=== PATIENT | female | born 1965 | race Caucasian/White ===

== ENCOUNTER 2017-10-09 05:05 | Inpatient (IN) | payer OTHER ==
[~2017-10-09] VITALS: Ht 157.5 cm; Wt 140.2 kg
--- NOTE | ~2017-10-09 | HC ---
[facility] [place] [address] CONSULTATION Name: KEVIN FARRIS Room #: 201-P [facility] IN M.R.#: [id number] Admission: 10/09/17 Attend Phys: Amadeo Mathews MD Discharge: 10/23/17 Date of : 61 Report #: [id number] THIS REPORT FOR: //name// CC: FAM unknown Amadeo Mathews DATE OF SERVICE: 10/20/2017 ADDENDUM. DATE OF CONSULTATION: 10/20/2017. <ELECTRONICALLY SIGNED> By: Tl Muñoz MD 02/25/18 2033 1122 1215 Tl Muñoz MD /nt
--- NOTE | ~2017-10-09 | HC ---
[facility] [place] [address] CONSULTATION Name: KEVIN FARRIS Room #: 201-P [facility] IN ..#: [id number] Admission: 10/09/17 Attend Phys: Amadeo Mathews MD Discharge: 10/23/17 Date of : 61 Report #: [id number] THIS REPORT FOR: //name// CC: FAM unknown Amadeo Mathews REASON FOR CONSULTATION: I was asked to evaluate concerning a leukocytosis in the setting of left chest pneumothorax, COPD. HISTORY OF PRESENT ILLNESS: The patient was a 52-year-old with end-stage COPD, oxygen and steroid dependent, who presents with a 2-day history of dyspnea. Diagnosed with pneumothorax at outside hospital where a left chest tube was placed. Transfers to [facility] for further care. She was found to have a large left pneumothorax with a pigtail catheter in place. Developed an air leak and subcutaneous emphysema. Was seen by Pulmonary Medicine and Cardiothoracic Surgery. She has had minimal cough. She remains on 50% face mask. Some anterior chest discomfort mostly on the right. She has noticed this since her chest tube has been in place. Plan was to exchange her chest tube today for larger bore tube. Last evening developed epistaxis. Now has a nasal packing in place. No nausea, vomiting or diarrhea. No dysuria. Does have issue with chronic rectal incontinence. ALLERGIES: None known. MEDICATIONS: As noted on her MAR including Levaquin. Did receive 2 days of cefazolin. She remains on Solu-Medrol. Other medicines as noted on her OCT. PAST MEDICAL HISTORY: Diabetes, coronary artery disease, hypertension, end-stage COPD, iron deficiency anemia, anxiety, depression, atrial fibrillation, gastroesophageal reflux, osteoarthritis, renal calculi, morbid obesity, congestive heart failure, pulmonary nodules, incisional ventral hernia repair, hysterectomy, right knee surgery, right foot fracture. FAMILY HISTORY: Hypertension. SOCIAL HISTORY: No significant alcohol intake. Past smoker, currently lives in a skilled nursing. Had previously been on hospice care. REVIEW OF SYSTEMS: Denies any headache. Remains on face mask 50%. No neck pain. No new cardiac issues. No GI or complaints. PHYSICAL EXAMINATION: VITAL SIGNS: Afebrile and hemodynamically stable. GENERAL: She was obese. No acute distress. Became short of breath when trying to lay flat. Unable to roll over in bed. SKIN: Unremarkable. LYMPH: Unremarkable. [address] [address] CONSULTATION Name: KEVIN FARRIS Room #: 201-P [facility] IN [facility].#: [id number] Admission: 10/09/17 Attend Phys: Amadeo Mathews MD Discharge: 10/23/17 Date of : 61 Report #: [id number] HEENT: Unremarkable. NECK: Supple. LUNGS: Decreased breath sounds bilaterally. She did have subcutaneous air across her anterior chest. Had crepitance due to this. HEART: Regular, without murmur. ABDOMEN: Soft, nontender, no hepatosplenomegaly or mass. EXTERNAL GENITALIA: Unremarkable with indwelling Pleitez catheter. EXTREMITIES: Peripheral IV in place. Right foot fracture in a boot. SKIN: Inspected with evidence of ecchymosis to her right foot. No skin breakdown. LABORATORY STUDIES: Sodium 141, potassium 4.1, bicarbonate 33, creatinine 0.8, hemoglobin 10.4, platelet count 465,000, WBC 22.9. Urinalysis greater than 20 rbc's, moderate bacteria, no leukocytosis. Urine culture shows 70,000 Proteus species resistant to quinolones, Unasyn, nitrofurantoin, and tetracycline. Chest x-ray, left lower lobe atelectasis, left apical pneumothorax, chest tube in place. Subcutaneous air evident. IMPRESSION: Acute leukocytosis in the setting of epistaxis, left chest pneumothorax and basilar atelectasis, hematuria and bacteriuria in the setting of indwelling Pleitez catheter. Source of her leukocytosis I suspect is multifactorial including her epistaxis event, basilar pneumonitis and corticosteroid use. I doubt cystitis would cause that level of leukocytosis. Corticosteroids are most likely the driving factor. RECOMMENDATIONS: We will continue antibiotic coverage for her sinuses as well as the left chest. Would recommend tapering of her corticosteroids. The patient is to have her chest tube exchanged today. Doubt the leukocytosis is from this specific site. Would recommend following her white count as her steroids are tapered. Continue with Levaquin at this time pending further cultures. ADDENDUM. DATE OF CONSULTATION: 10/20/2017. <ELECTRONICALLY SIGNED> By: Tl Muñoz MD 03/16/18 1446 1200 1416 Tl Muñoz MD /nt
--- NOTE | ~2017-10-09 | O ---
[facility] [place] [address] OPERATIVE REPORT Name: BRENTONKEVIN S Room #: 201-P [facility] IN .R.#: [id number] Admission: 10/09/17 Attend Phys: Amadeo Mathews MD Discharge: 10/23/17 Date of : 61 Report #: [id number] THIS REPORT FOR: //name// CC: FAM unknown Amadeo Mathews MD PREOPERATIVE DIAGNOSES: 1. Anterior epistaxis. 2. Anticoagulated. 3. Anterior nasal septal perforation. DESCRIPTION OF PROCEDURE: The nose was sprayed with Afrin spray. I injected 7 mL of 1% lidocaine with 1:100,000 of epinephrine into the anterior nasal space as well as the septum. I then removed a crust from the septum. There was a 1.5 cm septal perforation with bleeding and cauterization around the edges. I inserted Merocel anterior nasal packs with ventilation tubing. They were then instilled with saline. There were coated with antibiotic ointment. The patient tolerated the procedure. <ELECTRONICALLY SIGNED> By: Kaden Tapia MD 11/17/17 1902 1255 1416 Kaden Tapia MD /nt
--- NOTE | ~2017-10-09 | EKG ---
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: DAYAN : 1965 Requested By: Boris Gibbons Order Number: [id number] MD: Gino Orr Measurements Intervals [place] Rate: 115 P: 74 ME: 143 QRS: 60 QRSD: 87 T: 62 QT: 332 QTc: 460 Interpretive Statements Sinus tachycardia Low voltage, precordial leads Compared to ECG 07/10/2013 10:13:49 Low QRS voltage now present Atrial premature complex(es) no longer present T-wave abnormality no longer present Electronically Signed On 10-09-2017 16:00:07 MECHANICAL APPLICATIONS ENGINEER by Gino Orr [email or web address] <ELECTRONICALLY SIGNED> By: Gino Orr MD, [facility] 10/09/17 1600 0939 0939 Gino Orr MD, [facility] /EPI
--- NOTE | ~2017-10-09 | EKG ---
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 : 1965 Requested By: Hemalatha Perez Order Number: [id number] MD: Gino Orr Measurements Intervals [place] Rate: 132 P: 63 UT: 136 QRS: 67 QRSD: 84 T: 42 QT: 300 QTc: 445 Interpretive Statements Sinus tachycardia Low voltage, precordial leads Compared to ECG 10/09/2017 09:39:24 No significant changes Electronically Signed On 10-10-2017 8:18:31 HIGH SCHOOL ART TEACHER by Gnio Orr [email or web address] <ELECTRONICALLY SIGNED> By: Gino Orr MD, [facility] 10/10/17817 2 2 Gino Orr MD, [facility] /EPI
[~2017-10-09 05:05] MED LIST: ACCUNEB SO1.25 MG/1; ACCUNEB SO1.25 MG/1 INH; ACCUNEB1.25 MG/3 INH; ACETAMINOPHEN325 M1 PO; ADVAIR 250-501 EACH INH; ADVAIR HFA115 MCG/21 INH; ALBUTEROL INH; ALBUTEROL2.5 MG/0.5 INH; ALBUTEROL2.5 MG/31 INH; ALPRAZOLAM PO; AMBIEN 10 MG TA10 MG PO; ASPIR 8181 MG PO; CALCITONIN NASAL; CARDIZEM CD120 MG PO; CELEXA 20 MG TA20 MG PO; COLACE 100 MG100 MG PO; COLACE100 MG PO; COMPAZINE25 M1 RECTAL; CYCLOBENZAPRINE5 MG PO; DUONEB 2.5-0.5 M3 ML INH; ENOXAPARIN40 MG/0.1 SUBQ; HALOPERIDOL 1 MG1 MG PO; IRON325 PO; K-DUR 20 MEQ T20 MEQ PO; LASIX 20 MG TAB20 MG PO; LASIX 40 MG TAB40 M2 PO; LASIX 80 MG TAB80 MG PO; LEVAQUIN 500 M500 M1 PO; LEVAQUIN 500 M500 M4 PO; LIDODERM 5%1 PATCH TOP; MOM PO; MS CONTIN 30 MG30 MG PO; MS CONTIN15 MG PO; MUCINEX TA600 MG/TA1 PO; MUCINEX600 MG PO; MYLANTA PO; NEURONTIN 300300 M1 PO; NORCO 10-325 T1 EACH PO; OSCAL PO; OXECTA5 MG PO; OXYCONTIN20 M1 PO; OXYCONTIN60 MG PO; POTASSIUM CHLO10 MEQ PO; POTASSIUM PO; PREDNISONE 10 M10 M1 PO; PREDNISONE 10 M10 MG PO; PRILOSEC 20 MG20 MG PO; PROTONIX40 M1 PO; PROTONIX40 M2 PO; RESTORIL15 MG PO; ROXANOL 20 M20 MG/ML PO; ROXICODONE5 MG PO; SPIRIVA INH; TRAMADOL 50 MG50 MG PO; TYLENOL325 MG PO; VAGISIL CREAM28 GM TOP; ZANTAC 150MG T150 M1 PO
[2017-10-09 06:34] VITALS: BP 134/79
[2017-10-09 07:34] VITALS: BP 130/79
[2017-10-09 10:21] LABS: HEMATOCRIT 37.4 % (37.0-47.0); HEMOGLOBIN 11.8 gm/dL (12.0-15.0); MCH 25.1 pg (26.0-34.0); MCHC 31.5 g/dL (28.0-37.0); MCV 79.6 fL (80.0-100.0); RBC 4.69 mil/uL (4.20-5.00); WBC 8.3 thou/uL (4.0-11.0)
[2017-10-09 10:34] LABS: CALCIUM 9.2 mg/dL (8.5-10.1); CREATININE 0.9 mg/dL (0.6-1.0)
[2017-10-09 10:44] LABS: TOTAL BILIRUBIN 0.3 mg/dL (<0.1-1.0); TOTAL PROTEIN 6.8 g/dL (6.4-8.2)
[2017-10-09 11:12] VITALS: BP 130/79
[2017-10-09 11:53] VITALS: BP 140/86
[2017-10-09 16:41] VITALS: BP 130/86
[2017-10-09 19:08] VITALS: BP 116/91
[2017-10-10] VITALS (8 sets, daily range): BP systolic 92–155; BP diastolic 68–112
[2017-10-10 04:07] LABS: HEMOGLOBIN 12.9 gm/dL (12.0-15.0); MCH 25.4 pg (26.0-34.0); MCHC 31.5 g/dL (28.0-37.0); MCV 80.6 fL (80.0-100.0); RBC 5.09 mil/uL (4.20-5.00); RDW 19.1 % (10.5-14.5); WBC 10.3 thou/uL (4.0-11.0)
[2017-10-10 04:16] LABS: CALCIUM 8.9 mg/dL (8.5-10.1); CREATININE 0.8 mg/dL (0.6-1.0); POTASSIUM 3.8 mmol/L (3.5-5.1)
[2017-10-10 18:11] LABS: BE(vivo) 2.2 mmol/L (-2 to +3); HCO3 30.6 mmol/L (22.0-26.0); PCO2 67.6 mmHg (35.0-45.0); PO2 70.1 mmHg (80.0-100.0); pH 7.274 (7.360-7.450); sO2 91.3 % (92.0-98.0)
[2017-10-10 20:17] LABS: BE(vivo) -1.7 mmol/L (-2 to +3); HCO3 25.6 mmol/L (22.0-26.0); PO2 58.8 mmHg (80.0-100.0); pH 7.286 (7.360-7.450); sO2 86.9 % (92.0-98.0)
[2017-10-11 04:50] VITALS: BP 117/64
[2017-10-11 04:50] LABS: HEMATOCRIT 37.1 % (37.0-47.0); HEMOGLOBIN 11.5 gm/dL (12.0-15.0); MCH 24.9 pg (26.0-34.0); MCHC 30.9 g/dL (28.0-37.0); MCV 80.5 fL (80.0-100.0); RBC 4.61 mil/uL (4.20-5.00); RDW 18.6 % (10.5-14.5)
[2017-10-11 05:02] LABS: CALCIUM 8.4 mg/dL (8.5-10.1); CREATININE 0.6 mg/dL (0.6-1.0); POTASSIUM 4.3 mmol/L (3.5-5.1)
[2017-10-11 07:51] VITALS: BP 108/51
[2017-10-11 09:33] VITALS: BP 108/51
[2017-10-11 11:56] VITALS: BP 121/74
[2017-10-11 15:54] VITALS: BP 107/70
[2017-10-11 20:10] VITALS: BP 139/78
[2017-10-12 00:38] VITALS: BP 151/77
[2017-10-12 03:44] LABS: HEMATOCRIT 34.1 % (37.0-47.0); HEMOGLOBIN 10.6 gm/dL (12.0-15.0); MCH 24.9 pg (26.0-34.0); MCV 80.3 fL (80.0-100.0); RBC 4.25 mil/uL (4.20-5.00); RDW 18.5 % (10.5-14.5); WBC 6.5 thou/uL (4.0-11.0)
[2017-10-12 04:02] LABS: CALCIUM 8.6 mg/dL (8.5-10.1); CREATININE 0.8 mg/dL (0.6-1.0); POTASSIUM 4.3 mmol/L (3.5-5.1)
[2017-10-12 04:45] VITALS: BP 137/82
[2017-10-12 05:26] LABS: BE(vivo) 3.9 mmol/L (-2 to +3); HCO3 30.2 mmol/L (22.0-26.0); PCO2 53.3 mmHg (35.0-45.0); PO2 92.8 mmHg (80.0-100.0); pH 7.371 (7.360-7.450); sO2 96.8 % (92.0-98.0)
[2017-10-12 07:10] VITALS: BP 140/87
[2017-10-12 10:55] VITALS: BP 135/92
[2017-10-12 15:10] VITALS: BP 136/93
[2017-10-12 19:24] VITALS: BP 105/61
[2017-10-13 03:06] LABS: HEMATOCRIT 35.5 % (37.0-47.0); MCH 24.5 pg (26.0-34.0); MCHC 30.9 g/dL (28.0-37.0); MCV 79.2 fL (80.0-100.0); RBC 4.48 mil/uL (4.20-5.00); RDW 18.7 % (10.5-14.5); WBC 7.6 thou/uL (4.0-11.0)
[2017-10-13 03:19] LABS: CALCIUM 9.2 mg/dL (8.5-10.1); CREATININE 0.8 mg/dL (0.6-1.0); POTASSIUM 4.6 mmol/L (3.5-5.1)
[2017-10-13 04:15] VITALS: BP 159/87
[2017-10-13 08:03] VITALS: BP 141/89
[2017-10-13 11:36] VITALS: BP 140/96
[2017-10-13 15:32] VITALS: BP 138/88
[2017-10-13 19:25] VITALS: BP 150/80
[2017-10-14 04:30] VITALS: BP 145/87
[2017-10-14 04:56] LABS: CALCIUM 8.9 mg/dL (8.5-10.1); CREATININE 0.8 mg/dL (0.6-1.0); POTASSIUM 5.1 mmol/L (3.5-5.1)
[2017-10-14 05:28] LABS: HEMATOCRIT 35.4 % (37.0-47.0); HEMOGLOBIN 11.1 gm/dL (12.0-15.0); MCHC 31.2 g/dL (28.0-37.0); MCV 79.9 fL (80.0-100.0); RBC 4.42 mil/uL (4.20-5.00); RDW 19.1 % (10.5-14.5); WBC 8.9 thou/uL (4.0-11.0)
[2017-10-14 07:33] VITALS: BP 114/61
[2017-10-14 11:59] VITALS: BP 139/90
[2017-10-14 16:57] VITALS: BP 127/93
[2017-10-14 19:50] VITALS: BP 133/53
[2017-10-15 04:23] LABS: CALCIUM 8.7 mg/dL (8.5-10.1); CREATININE 0.8 mg/dL (0.6-1.0); POTASSIUM 4.9 mmol/L (3.5-5.1)
[2017-10-15 04:45] VITALS: BP 132/70
[2017-10-15 09:41] VITALS: BP 147/92
[2017-10-15 12:29] VITALS: BP 142/88
[2017-10-15 16:52] VITALS: BP 128/70
[2017-10-15 20:10] VITALS: BP 125/60
[2017-10-16 00:25] VITALS: BP 132/56
[2017-10-16 03:32] LABS: CALCIUM 8.8 mg/dL (8.5-10.1); CREATININE 0.7 mg/dL (0.6-1.0)
[2017-10-16 04:50] VITALS: BP 125/68
[2017-10-16 07:21] VITALS: BP 142/68
[2017-10-16 11:29] VITALS: BP 143/78
[2017-10-16 15:38] VITALS: BP 116/57
[2017-10-16 19:18] VITALS: BP 129/66
[2017-10-17 04:22] VITALS: BP 129/71
[2017-10-17 07:20] VITALS: BP 147/72
[2017-10-17 11:03] VITALS: BP 106/64
[2017-10-17 15:31] VITALS: BP 133/58
[2017-10-17 20:22] VITALS: BP 115/58
[2017-10-17 21:35] LABS: URINE BLOOD 3+ (Negative); URINE CLARITY CLOUDY; URINE COLOR RED; URINE GLUCOSE-RANDOM* NEGATIVE (Negative); URINE KETONES NEGATIVE (Negative); URINE PROTEIN (DIPSTICK) 2+ (Negative); URINE UROBILINOGEN 0.2 E.U./dl (0.2-1.0)
[2017-10-17 21:38] LABS: ICTOTEST (BILI CONFIRMATORY) Negative (Negative); URINE BILIRUBIN NEGATIVE (Negative); URINE LEUKOCYTES-REFLEX TRACE (Negative); URINE NITRITE-REFLEX POSITIVE (Negative)
[2017-10-17 21:42] LABS: CASTS None Seen /LPF (None Seen); SQUAMOUS 0-3 Few /LPF (0-3); URIC ACID CRYSTALS 0-3 Few /LPF (None Seen); URINE RBC >20 Many /HPF (0-2); URINE WBC-REFLEX 0-5 Rare /HPF (0-5)
[2017-10-18 05:16] VITALS: BP 136/63
[2017-10-18 06:50] LABS: CALCIUM 8.6 mg/dL (8.5-10.1); CREATININE 0.7 mg/dL (0.6-1.0); POTASSIUM 4.5 mmol/L (3.5-5.1)
[2017-10-18 07:14] VITALS: BP 98/40
[2017-10-18 11:40] VITALS: BP 123/60
[2017-10-18 15:08] VITALS: BP 151/90
[2017-10-18 16:11] VITALS: BP 116/59
[2017-10-18 19:20] VITALS: BP 108/65
[2017-10-19 04:58] VITALS: BP 130/73
[2017-10-19 07:05] LABS: HEMATOCRIT 32.5 % (37.0-47.0); HEMOGLOBIN 10.3 gm/dL (12.0-15.0)
[2017-10-19 07:30] VITALS: BP 121/58
[2017-10-19 15:09] VITALS: BP 131/80
[2017-10-19 16:28] LABS: APTT 27.4 Seconds (24.5-32.8); INR 1.1; PROTIME 11.2 Seconds (9.3-11.4)
[2017-10-20 02:36] LABS: HEMATOCRIT 33.6 % (37.0-47.0); HEMOGLOBIN 10.4 gm/dL (12.0-15.0); MCH 24.6 pg (26.0-34.0); MCV 79.6 fL (80.0-100.0); RBC 4.22 mil/uL (4.20-5.00); RDW 19.7 % (10.5-14.5); WBC 22.9 thou/uL (4.0-11.0)
[2017-10-20 02:57] LABS: CALCIUM 8.8 mg/dL (8.5-10.1); CREATININE 0.8 mg/dL (0.6-1.0); POTASSIUM 4.1 mmol/L (3.5-5.1)
[2017-10-20 03:16] VITALS: BP 130/87
[2017-10-20 08:08] VITALS: BP 117/88
[2017-10-20 12:04] LABS: BE(vivo) 0.1 mmol/L (-2 to +3); HCO3 25.8 mmol/L (22.0-26.0); PO2 58.2 mmHg (80.0-100.0); pH 7.366 (7.360-7.450); sO2 89.2 % (92.0-98.0)
[2017-10-20 12:08] VITALS: BP 117/78
[2017-10-20 15:12] VITALS: BP 116/71
[2017-10-20 19:08] VITALS: BP 135/71
[2017-10-21 00:18] VITALS: BP 143/82
[2017-10-21 04:35] VITALS: BP 141/51
[2017-10-21 04:59] LABS: CALCIUM 8.6 mg/dL (8.5-10.1); CREATININE 0.7 mg/dL (0.6-1.0); MAGNESIUM 2.4 mg/dL (1.8-2.4); POTASSIUM 4.5 mmol/L (3.5-5.1)
[2017-10-21 05:25] LABS: HEMOGLOBIN 9.3 gm/dL (12.0-15.0); MCH 24.9 pg (26.0-34.0); MCV 80.3 fL (80.0-100.0); RBC 3.73 mil/uL (4.20-5.00); RDW 20.6 % (10.5-14.5); WBC 20.9 thou/uL (4.0-11.0)
[2017-10-21 08:14] VITALS: BP 120/76
[2017-10-21 11:18] VITALS: BP 111/73
[2017-10-21 15:08] VITALS: BP 126/73
[2017-10-21 19:52] VITALS: BP 125/62
[2017-10-22 04:12] LABS: ANION GAP 3 mmol/L (7-16); BUN 15 mg/dL (7-18); CALCIUM 8.9 mg/dL (8.5-10.1); CHLORIDE 105 mmol/L (98-107); CO2 34 mmol/L (21-32); CREATININE 0.7 mg/dL (0.6-1.0); GLUCOSE 102 mg/dL (74-106); MAGNESIUM 2.5 mg/dL (1.8-2.4); POTASSIUM 4.4 mmol/L (3.5-5.1); SODIUM 142 mmol/L (136-145)
[2017-10-22 04:40] LABS: HEMATOCRIT 27.3 % (37.0-47.0); HEMOGLOBIN 8.6 gm/dL (12.0-15.0); MCHC 31.4 g/dL (28.0-37.0); MCV 79.8 fL (80.0-100.0); PLATELET COUNT 397 thou/uL (150-400); RBC 3.42 mil/uL (4.20-5.00); RDW 20.2 % (10.5-14.5); WBC 20.8 thou/uL (4.0-11.0)
[2017-10-22 04:45] VITALS: BP 138/69
[2017-10-22 07:07] VITALS: BP 113/72
[2017-10-22 11:04] VITALS: BP 120/63
[2017-10-22 11:14] LABS: ABSOLUTE NEUTROPHILS 17.7 thou/uL (1.4-8.2); ANISOCYTOSIS 2+; HYPOCHROMASIA 1+; METAMYELOCYTES 1 %; MYELOCYTES 1 %; POLYCHROMASIA OCCASIONAL
[2017-10-22 11:41] LABS: ALBUMIN 2.7 g/dL (3.4-5.0); DIRECT BILIRUBIN < 0.1 mg/dL (<0.1-0.3); SGOT 27 U/L (15-37); SGPT 21 U/L (30-65); TOTAL BILIRUBIN 0.2 mg/dL (<0.1-1.0)
[2017-10-22 15:04] VITALS: BP 103/65
[2017-10-22 19:17] VITALS: BP 123/72
[2017-10-23 03:52] LABS: HEMATOCRIT 25.8 % (37.0-47.0); HEMOGLOBIN 8.2 gm/dL (12.0-15.0); MCH 25.6 pg (26.0-34.0); MCHC 31.7 g/dL (28.0-37.0); MCV 80.8 fL (80.0-100.0); RBC 3.2 mil/uL (4.20-5.00); RDW 20.1 % (10.5-14.5); WBC 21.7 thou/uL (4.0-11.0)
[2017-10-23 03:57] LABS: CALCIUM 8.8 mg/dL (8.5-10.1); CREATININE 0.7 mg/dL (0.6-1.0); MAGNESIUM 2.4 mg/dL (1.8-2.4); POTASSIUM 4.3 mmol/L (3.5-5.1)
[2017-10-23 04:39] VITALS: BP 121/77
[2017-10-23 07:21] VITALS: BP 133/81
[2017-10-23 11:08] VITALS: BP 131/51
[2017-10-23] MEDS ORDERED: ROCEPHIN 11 GM/1001 IV (12:40)
[2017-10-23] MEDS ORDERED: DUONEB 2.5-0.5 M3 ML INH ×2 (12:41)
[2017-10-23] MEDS ORDERED: PERCOCET PO (12:46)
[2017-10-23] MEDS ORDERED: LASIX 40 MG TAB40 M2 PO (12:47)
[2017-10-23] MEDS ORDERED: PREDNISONE 10 M10 MG PO (12:54)
== END 2017-10-23 16:05 | DRG 163 ==
LOC: 2N 05:05
PROVIDERS: Hospitalist; Internal Medicine; Internal Medicine Pulmonary Disease; Nurse Practitioner Acute Care
PROC: 0W9B30Z Drainage of Left Pleural Cavity with Drainage Device, Percutaneous Approach (ICD-10-PCS; principal; 2017-10-09)
PROC: 5A09357 Assistance with Respiratory Ventilation, Less than 24 Consecutive Hours, Continuous Positive Airway Pressure (ICD-10-PCS; 2017-10-11)
PROC: 0W9B30Z Drainage of Left Pleural Cavity with Drainage Device, Percutaneous Approach (ICD-10-PCS; 2017-10-11)
PROC: 5A09357 Assistance with Respiratory Ventilation, Less than 24 Consecutive Hours, Continuous Positive Airway Pressure (ICD-10-PCS; 2017-10-12)
PROC: 0W3Q7ZZ Control Bleeding in Respiratory Tract, Via Natural or Artificial Opening (ICD-10-PCS; 2017-10-19)
PROC: 0W28X0Z Change Drainage Device in Chest Wall, External Approach (ICD-10-PCS; 2017-10-20)
DX: J93.83 Other pneumothorax (principal); N18.6 End stage renal disease; J96.21 Acute and chronic respiratory failure with hypoxia; J96.22 Acute and chronic respiratory failure with hypercapnia; I13.2 Hypertensive heart and chronic kidney disease with heart failure and with stage 5 chronic kidney disease, or end stage renal disease; J98.11 Atelectasis; I50.32 Chronic diastolic (congestive) heart failure; Z68.43 Body mass index [BMI] 50.0-59.9, adult; R04.0 Epistaxis; I25.10 Atherosclerotic heart disease of native coronary artery without angina pectoris; F32.9 Major depressive disorder, single episode, unspecified; I48.91 Unspecified atrial fibrillation; K21.9 Gastro-esophageal reflux disease without esophagitis; M19.90 Unspecified osteoarthritis, unspecified site; E66.01 Morbid (severe) obesity due to excess calories; J34.89 Other specified disorders of nose and nasal sinuses; E11.22 Type 2 diabetes mellitus with diabetic chronic kidney disease; F41.1 Generalized anxiety disorder; G89.4 Chronic pain syndrome; J43.9 Emphysema, unspecified; G47.33 Obstructive sleep apnea (adult) (pediatric); S92.009A Unspecified fracture of unspecified calcaneus, initial encounter for closed fracture; K59.00 Constipation, unspecified; Z90.710 Acquired absence of both cervix and uterus; Z82.49 Family history of ischemic heart disease and other diseases of the circulatory system; Z79.01 Long term (current) use of anticoagulants; Z87.891 Personal history of nicotine dependence; Z79.899 Other long term (current) drug therapy; Z79.82 Long term (current) use of aspirin; Z87.442 Personal history of urinary calculi; Z79.4 Long term (current) use of insulin; Z87.81 Personal history of (healed) traumatic fracture
CPT/HCPCS: 10081

== ENCOUNTER 2017-10-29 09:52 | Inpatient (IN) | payer OTHER ==
[~2017-10-29] VITALS: Ht 175.3 cm; Wt 131.4 kg
--- NOTE | ~2017-10-29 | P ---
[facility] [place] [address] PROCEDURE REPORT Name: KEVIN FARRIS Room #: 457-P [facility] IN ..#: [id number] Admission: 10/30/17 Attend Phys: Davis Madrid MD Discharge: 11/03/17 Date of : 61 Report #: [id number] THIS REPORT FOR: //name// CC: Davis Madrid MD [facility] unknown DATE OF SERVICE: 10/31/2017 BRONCHOSCOPY NOTE REASON FOR PROCEDURE: Atelectasis and pneumothorax, concern for endobronchial obstruction. PROCEDURE NOTATION: After discussing risks and benefits of planned procedure with the patient, she desired to proceed. After obtaining informed consent, she was brought to photonic laboratory technician 3, where she was placed on continuous cardiopulmonary monitoring and supplemental oxygen and given 4% lidocaine nebulized to anesthetize the upper respiratory tract. Once accomplished, she received conscious sedation. Total of 3 mg of Versed were titrated during the procedure for adequate sedation. Once accomplished, bronchoscope was passed through an oral biteblock until the vocal cords were visualized. Lidocaine 1% was instilled in the vocal cords to provide topical anesthesia. Once accomplished, bronchoscope was passed in the trachea and 1% lidocaine was instilled in the tracheobronchial tree bilaterally for topical anesthesia. Once complete, the airways were surveyed. FINDINGS: Mainstem, lobar, segmental and subsegmental bronchi were explored, with no significant anatomic variation. There was significant bronchomalacia throughout the airways bilaterally, with the exclusion of the trachea. Some thick white secretions were noted throughout the left bronchial tree. These were purged and aspirated. The bronchi were patent post-procedure. No endobronchial mass or obstruction was noted. Several cytologic brushings were obtained and there is some narrowing of the left upper lobe apical posterior segment. However, I felt that was likely extrinsically compressed due to trapped lung. This was sent for cytology. Lavage was performed in this area with secretions and lavage sent for microbiologic and cytologic testing. The patient tolerated it well. No noted complications. Albuterol administered post-procedure due to bronchospasm. <ELECTRONICALLY SIGNED> By: Mika Calderón MD 11/06/17 1756 1403 1430 Mika Calderón MD /nt
--- NOTE | ~2017-10-29 | H ---
[facility] [place] [address] HISTORY AND PHYSICAL Name: KEVIN FARRIS Room #: 441-P ADM IN M.R.#: [id number] Admission: 10/30/17 Attend Phys: Davis Madrid MD Discharge: Date of : 61 Report #: [id number] THIS REPORT FOR: //name// CC: Davis CASTILLO unknown DATE OF SERVICE: 10/29/2017 CHIEF COMPLAINT: Shortness of breath. HISTORY OF PRESENT ILLNESS: The patient is a 52-year-old female from [facility] LT[facility] facility, who is admitted for evaluation of a possible pneumothorax. She has a history of end-stage COPD due to bullous emphysema and had a spontaneous left pneumothorax that required placement of a chest tube. Apparently she has had difficulty with the chest tube ceiling due to her size and was deemed not an operative candidate due to her overall weight and poor condition. LTAC tried to patch the pneumothorax and chest tube without any success. It appears that the tube came out several days ago and she was recommended for replacement. Followup studies yesterday suggested a pneumothorax. She had been on Lovenox, which was held last night and she was brought to IR today. Chest x-ray was obtained, which revealed bullous emphysema. Currently, the plan is to obtain a CT of the chest and then make a determination whether chest tube placement is indicated. PAST MEDICAL HISTORY: COPD due to emphysema, obstructive sleep apnea. She had previously been on CPAP in a half-way, chronic diastolic congestive heart failure, morbid obesity. She apparently had been on hospice some time in the past. PAST SURGICAL HISTORY: Unknown. FAMILY HISTORY: Unknown. SOCIAL HISTORY: She is disabled and was living in a half-way prior to this illness. ALLERGIES: None. MEDICATIONS: DuoNeb, aspirin, Miacalcin, Rocephin, Celexa, Colace, Lasix, MS Contin, Protonix, iron, prednisone. REVIEW OF SYSTEMS: She denies headache, chest pain, nausea, vomiting, diarrhea, constipation, dysuria, syncope. OBJECTIVE: VITAL SIGNS: Per the nursing note. [address] [address] HISTORY AND PHYSICAL Name: KEVIN FARRIS Room #: [facility] IN M.R.#: [id number] Admission: 10/30/17 Attend Phys: Davis Madrid MD Discharge: Date of : 61 Report #: [id number] GENERAL: She is awake and alert, in no distress. HEAD AND NECK: Unremarkable. LUNGS: Clear anteriorly. HEART: Regular. ABDOMEN: Obese, soft, normoactive bowel sounds. EXTREMITIES: 1+ edema. NEUROLOGIC: Global strength 3/5 throughout. Chest x-ray, bullous emphysema of the left lung similar to prior x-rays. Apparent pneumothorax on the left felt due to bullous disease. ASSESSMENT: 1. Left pneumothorax. 2. Chronic obstructive pulmonary disease. 3. Emphysema. 4. Obstructive sleep apnea. 5. Likely obesity hypoventilation syndrome. 6. Morbid obesity. 7. Chronic diastolic congestive heart failure. PLAN: CT of the chest will be obtained. We will have Radiology review this. I will ask Pulmonary to follow her here to help make a determination whether chest tube is beneficial at this point or whether she needs to return to CPAP respiratory assistance. Other medications to continue. Once determination on chest tube is made, we will then recoordinate with Lovenox for DVT prophylaxis, which will be on hold now, in case the tube is indicated after CT. <ELECTRONICALLY SIGNED> By: Davis Madrid MD 10/30/17 1049 1419 1447 Davis Madrid MD /nt
--- NOTE | ~2017-10-29 | CNG ---
[facility] [place] [address] CYTO-NONGYN REPORT PROCEDURE Name: KEVIN FARRIS Room #: 457-P ADM IN M.R.#: [id number] Admission: 10/30/17 Date of : 61 Discharge: Report #: [id number] Path Case #: [id number] CYTOPATHOLOGY REPORT COLLECTION DATE: 10/31/2017 RECEIVED DATE: 10/31/2017 SUBMITTING PHYS: Dr. Davis Madrid OTHER PHYS: Dr. Boris Calderón CLINICAL HISTORY: Exacerbation of COPD, pneumothorax unspecified, pneumonia unspecified organism SPECIMEN(S) RECEIVED: A.Bronchoalveolar lavage, FRED B.Brushing, NOS * * * * * * * * * * * * FINAL DIAGNOSIS: A. Lung, FRED, Bronchoalveolar lavage: - No malignant cells identified. Marked acute and chronic inflammation along with rare macrophages. B. Lung, NOS, Brushing: - No malignant cells identified. Reactive bronchial epithelial cells and alveolar macrophages are present with extensive air-drying artifact. Marked acute and chronic inflammation in a background of debris. PATHOLOGIST: Rossy Polk M.D. REPORT ELECTRONICALLY SIGNED BY: Rossy Polk M.D. DATE/TIME: 11/03/2017 14:26 * * * * * * * * * * * * GROSS PATHOLOGY: A. Bronchoalveolar lavage, FRED: The specimen is submitted unfixed, labeled "OsmanyKevin Elizabeth". Received by the Cytology Department is eight mL of cloudy colorless fluid. One ThinPrep slide was prepared. B. Brushing, NOS: The specimen is labeled "Kevin Farris" and consists of three fixed slides. One brush tip in fixative is also submitted and one ThinPrep slide was prepared from this material. (mm 10.31.2017) PERFECT BINDER SETTER(S): GUILLERMO Bolanos([facility]) INITIAL CPT CODE(S): A; 57632 B; [address] [address] CYTO-NONGYN REPORT PROCEDURE Name: KEVIN FARRIS Room #: 457-P [facility] IN M.R.#: [id number] Admission: 10/30/17 Date of : 61 Discharge: Report #: [id number] Path Case #: [id number] Professional services performed by [facility] at [address] , [place] [address] Technical services performed by [facility] at [address] [place] [address]., [address], [place] [address]. [facility] [place] [address] PHONE: [phone] DIRECTOR: Ike Juares M.D. * * * END OF REPORT * * *
[~2017-10-29 09:52] MED LIST changes: +PERCOCET PO; +ROCEPHIN 11 GM/1001 IV
[2017-10-29 14:15] VITALS: BP 133/82
[2017-10-29 16:42] LABS: BE(vivo) 6.6 mmol/L (-2 to +3); HCO3 31.9 mmol/L (22.0-26.0); PCO2 49.1 mmHg (35.0-45.0); PO2 66.7 mmHg (80.0-100.0); sO2 93.5 % (92.0-98.0)
[2017-10-29 18:26] LABS: HEMATOCRIT 27.8 % (37.0-47.0); MCH 25.8 pg (26.0-34.0); MCHC 32.5 g/dL (28.0-37.0); MCV 79.6 fL (80.0-100.0); RBC 3.5 mil/uL (4.20-5.00); WBC 8.5 thou/uL (4.0-11.0)
[2017-10-29 18:35] LABS: CALCIUM 8.7 mg/dL (8.5-10.1); CREATININE 0.7 mg/dL (0.6-1.0); POTASSIUM 3.4 mmol/L (3.5-5.1)
[2017-10-29 19:38] VITALS: BP 140/77
[2017-10-30 03:12] VITALS: BP 132/84
[2017-10-30 08:42] VITALS: BP 129/79
[2017-10-30 14:09] VITALS: BP 116/71
[2017-10-30 14:10] VITALS: BP 116/71
[2017-10-30 16:17] VITALS: BP 127/75
[2017-10-30 19:45] VITALS: BP 117/72
[2017-10-31 03:35] VITALS: BP 142/75
[2017-10-31 08:00] VITALS: BP 136/77
[2017-10-31 09:39] VITALS: BP 104/60
[2017-10-31 16:00] VITALS: BP 97/63
[2017-10-31 19:41] VITALS: BP 114/68
[2017-11-01 03:55] VITALS: BP 132/66
[2017-11-01 06:09] LABS: HEMATOCRIT 29.3 % (37.0-47.0); HEMOGLOBIN 9.2 gm/dL (12.0-15.0); MCH 25.2 pg (26.0-34.0); MCHC 31.4 g/dL (28.0-37.0); MCV 80.2 fL (80.0-100.0); RBC 3.65 mil/uL (4.20-5.00); RDW 20.7 % (10.5-14.5); WBC 10.5 thou/uL (4.0-11.0)
[2017-11-01 06:22] LABS: CALCIUM 7.9 mg/dL (8.5-10.1); CREATININE 0.8 mg/dL (0.6-1.0); POTASSIUM 4.4 mmol/L (3.5-5.1)
[2017-11-01 09:13] VITALS: BP 119/67
[2017-11-01 17:18] VITALS: BP 106/65
[2017-11-01 19:48] VITALS: BP 103/64
[2017-11-02 03:05] VITALS: BP 114/62
[2017-11-02 08:00] VITALS: BP 106/65
[2017-11-02 16:00] VITALS: BP 120/62
[2017-11-02 20:29] VITALS: BP 97/57
[2017-11-03 03:25] VITALS: BP 111/71
[2017-11-03 06:32] LABS: HEMATOCRIT 26.1 % (37.0-47.0); HEMOGLOBIN 8.3 gm/dL (12.0-15.0); MCH 25.6 pg (26.0-34.0); MCHC 31.8 g/dL (28.0-37.0); MCV 80.6 fL (80.0-100.0); RBC 3.24 mil/uL (4.20-5.00); RDW 20.4 % (10.5-14.5); WBC 9.1 thou/uL (4.0-11.0)
[2017-11-03 06:38] LABS: CALCIUM 8.6 mg/dL (8.5-10.1); CREATININE 1.1 mg/dL (0.6-1.0); POTASSIUM 3.1 mmol/L (3.5-5.1)
[2017-11-03 08:18] VITALS: BP 110/64
[2017-11-03] MEDS ORDERED: ENOXAPARIN40 MG/0.1 SUBQ (08:36)
[2017-11-03] MEDS ORDERED: ZOSYN 4.5 GRAM4.5 GM IV (08:36)
[2017-11-03] MEDS ORDERED: CARVEDILOL12.5 MG PO (08:36)
[2017-11-03] MEDS ORDERED: OXYCODONE HCL10 MG PO (08:37)
[2017-11-03] MEDS ORDERED: VANCO 500500 MG/100 IV (08:37)
[2017-11-03] MEDS ORDERED: PREDNISONE 10 M10 MG PO (08:38)
[2017-11-03] MEDS ORDERED: DEEP SEA NASAL44 M1 NASAL (08:38)
== END 2017-11-03 14:00 | DRG 166 ==
LOC: CV 09:52 → 4S 13:35 → 4W 11-02 12:19
PROVIDERS: Internal Medicine Geriatric Medicine
PROC: 0B9G8ZX Drainage of Left Upper Lung Lobe, Via Natural or Artificial Opening Endoscopic, Diagnostic (ICD-10-PCS; principal; 2017-10-31)
PROC: 0W9B30Z Drainage of Left Pleural Cavity with Drainage Device, Percutaneous Approach (ICD-10-PCS; 2017-10-31)
DX: J93.9 Pneumothorax, unspecified (principal); J18.9 Pneumonia, unspecified organism; J96.21 Acute and chronic respiratory failure with hypoxia; I50.32 Chronic diastolic (congestive) heart failure; Z68.41 Body mass index [BMI] 40.0-44.9, adult; J44.0 Chronic obstructive pulmonary disease with (acute) lower respiratory infection; E66.01 Morbid (severe) obesity due to excess calories; G47.33 Obstructive sleep apnea (adult) (pediatric); D64.9 Anemia, unspecified; Z87.81 Personal history of (healed) traumatic fracture; Z90.710 Acquired absence of both cervix and uterus; Z82.49 Family history of ischemic heart disease and other diseases of the circulatory system
CPT/HCPCS: 10045; 10100

== ENCOUNTER 2017-11-13 10:07 | Inpatient (IN) | payer OTHER ==
[~2017-11-13] VITALS: Ht 152.4 cm; Wt 136.4 kg
--- NOTE | ~2017-11-13 | CNG ---
[facility] [place] [address] CYTO-NONGYN REPORT PROCEDURE Name: BRENTONKEVIN S Room #: 219-P ADM IN M.R.#: [id number] Admission: 11/13/17 Date of : 61 Discharge: Report #: [id number] Path Case #: [id number] CYTOPATHOLOGY REPORT COLLECTION DATE: 11/17/2017 RECEIVED DATE: 11/17/2017 SUBMITTING PHYS: Dr. Mika Calderón OTHER PHYS: Dr. Avel Muñoz CLINICAL HISTORY: Pneumonia SPECIMEN(S) RECEIVED: A.Bronchoalveolar lavage, FRED * * * * * * * * * * * * FINAL DIAGNOSIS: A. Lung, FRED, Bronchoalveolar lavage: - No malignant cells identified. -Few bronchial epithelial cells, alveolar macrophages, inflammation and mucoid debris identified. PATHOLOGIST: Rossy Polk M.D. REPORT ELECTRONICALLY SIGNED BY: Rossy Polk M.D. DATE/TIME: 11/18/2017 15:35 * * * * * * * * * * * * GROSS PATHOLOGY: A. Bronchoalveolar lavage, FRED: The specimen is submitted unfixed, labeled "Kevin Farris". Received by the Cytology Department is 14 mL of cloudy pink tinted fluid. One ThinPrep slide was prepared. (mm 11.17.2017) MANAGER PORT(S): GUILLERMO Paredes([facility]) INITIAL CPT CODE(S): A; 45558 Professional services performed by [facility] at [facility] [address], [place] [address] Technical services performed by [facility] at [address] [place] [address]., [address], [place] [address]. [facility] [address] [place] [address], [address] [place] [address] PHONE: [phone] [facility] [address] [place] [address] CYTO-NONGYN REPORT PROCEDURE Name: KEVIN FARRIS Room #: 219-P ADM IN M.R.#: [id number] Admission: 11/13/17 Date of : 61 Discharge: Report #: [id number] Path Case #: [id number] DIRECTOR: Ike Juares M.D. * * * END OF REPORT * * *
--- NOTE | ~2017-11-13 | H ---
[facility] [place] [address] HISTORY AND PHYSICAL Name: BRENTONKEVIN S Room #: 219-P ADM IN ..#: [id number] Admission: 11/13/17 Attend Phys: Aleisha Minor Discharge: Date of : 61 Report #: [id number] THIS REPORT FOR: //name// CC: Avel CASTILLO unknown DATE OF SERVICE: 11/13/2017 CHIEF COMPLAINT: Shortness of breath. HISTORY OF PRESENT ILLNESS: The patient is a 52-year-old female, readmitted from [facility] for evaluation of a chronic left-sided pneumothorax. She was hospitalized here several months ago from an outlying center, and a chest tube was placed. She has emphysematous lung disease with multiple large blebs, but appeared to have a left-sided pneumothorax. A chest tube was placed, and she was transferred to the LTAC facility. However, she had trouble over there with desaturations after the chest tube came out of place. She was readmitted here about 2 weeks ago for replacement of the chest tube. Now apparently, there are problems with occlusion of the tube, not providing appropriate suction. She has been admitted for pulmonary evaluation and replacement of the chest tube. PAST MEDICAL HISTORY: 1. COPD due to severe emphysema. 2. Obstructive sleep apnea with suspected obesity hypoventilation syndrome, had been on CPAP, which has been on hold due to the pneumothorax, morbid obesity, chronic debility. She has been bedbound since 2012. PAST SURGICAL HISTORY: As above. FAMILY HISTORY: Unknown. SOCIAL HISTORY: No known chronic alcohol or tobacco use. She has been living in a care home. ALLERGIES: No known drug allergies. MEDICATIONS: Lasix, potassium, Tylenol, DuoNeb, aspirin, Coreg, Celexa, oxycodone, Protonix, Zosyn. REVIEW OF SYSTEMS: She just complains of some skin rashes, otherwise no headache, chest pain. She has some shortness of breath, abdominal pain, nausea, vomiting, diarrhea, constipation, dysuria, syncope. OBJECTIVE: VITAL SIGNS: Temperature 37.7, pulse 128, respirations 20, blood pressure [address] [address] HISTORY AND PHYSICAL Name: KEVIN FARRIS Room #: 219-P [facility] IN [facility]#: [id number] Admission: 11/13/17 Attend Phys: Aleisha Minor Discharge: Date of : 61 Report #: [id number] 145/89, O2 sat 93% on 8-10 liters nasal cannula. GENERAL: She is awake and alert, in no distress. HEAD AND NECK: Unremarkable. LUNGS: Clear anteriorly. HEART: Tachycardic, regular. ABDOMEN: Obese, soft, normoactive bowel sounds. EXTREMITIES: 1-2+ edema. NEUROLOGIC: She is alert, oriented to place and situation, in no distress. Global strength about 2-3/5 throughout. Laboratory and x-ray data reviewed. ASSESSMENT: 1. Left pneumothorax. 2. Emphysema. 3. Chronic obstructive pulmonary disease. 4. Obstructive sleep apnea, CPAP is on hold. 5. Obesity hypoventilation syndrome. 6. Tachycardia. 7. Microcytic anemia. 8. Severe protein-calorie malnutrition. 9. Morbid obesity. PLAN: Dr. Garcia has assessed the patient and plans are for IR to replace the chest tube. Continue her usual medications plus antibiotics and Lovenox once the tube has been replaced. She will likely need hospital management for several days to ensure stability before returning to LTAC. <ELECTRONICALLY SIGNED> By: Davis Madrid MD 11/14/17 1252 0943 1021 Davis Madrid MD /nt
--- NOTE | ~2017-11-13 | D ---
[facility] [place] [address] DISCHARGE SUMMARY Name: BRENTONKEVIN Elizabeth Room #: 219-P [facility] IN M.R.#: [id number] Admission: 11/13/17 Attend Phys: Aleisha Minor Discharge: 11/20/17 Date of : 61 Report #: [id number] THIS REPORT FOR: //name// CC: Avel CASTILLO unknown FINAL DIAGNOSES: 1. Emphysema. 2. Chronic obstructive pulmonary disease. 3. Obstructive sleep apnea. 4. Morbid obesity. 5. Obesity hypoventilation syndrome. HOSPITAL COURSE: The patient was admitted again from LTAC in regards to possible pneumothorax. Dr. Calderón assessed her. Interventional radiology interrogated the tube and there was no obstruction or air leak. There was no improvement on her chest x-ray with reexpansion of the left lung. She underwent bronchoscopy twice, but there were no endobronchial lesions to explain the chest x-ray findings. Ultimately, the tube came out and she was watched another 36-48 hours and had no change in her respiratory status. The determination at this point was no replacement of the chest tube. She developed a drug rash to Zosyn and Dr. Tl Muñoz adjusted her antibiotics. PHYSICAL EXAMINATION: GENERAL: On the day of discharge, she was awake and alert. VITAL SIGNS: Stable vital signs. SKIN: She had a diffuse faint rash. LUNGS: Clear. HEART: Regular. ABDOMEN: Soft and normoactive bowel sounds. EXTREMITIES: No edema. DISPOSITION: She will return to [facility] LT[facility] facility for continued respiratory care. She will continue current medications with IV vancomycin. Our service will follow her stay there. Overall, her prognosis is poor given her morbid obesity and severe lung findings. <ELECTRONICALLY SIGNED> By: Davis Madrid MD 11/21/17 0855 0900 0913 Davis Madrid MD /nt
--- NOTE | ~2017-11-13 | P ---
[facility] [place] [address] PROCEDURE REPORT Name: KEVIN FARRIS Room #: 219-P [facility] IN M.R.#: [id number] Admission: 11/13/17 Attend Phys: Aleisha Minor Discharge: Date of : 61 Report #: [id number] THIS REPORT FOR: //name// CC: Avel CASTILLO unknown DATE OF SERVICE: 11/17/2017 PROCEDURE: Fiberoptic bronchoscopy with bronchial washings. INDICATION: Left lower lobe atelectasis and mucus plugging, ASA classification class 3. PROCEDURE NOTATION: After discussing risks, benefits of planned procedure with the patient, she desired to proceed. After obtaining informed consent, was brought to catheterization lab 3 where she was placed on continuous cardiopulmonary monitoring and supplemental oxygen. She was then given 4% lidocaine nebulized to anesthetize the upper respiratory tract. Once complete, she received conscious sedation and a total 4 mg of Versed and 25 mcg of fentanyl were titrated during the procedure to provide adequate sedation. Once accomplished, bronchoscope was passed through an oral bite block until the vocal cords were visualized. Vocal cords moved appropriately both before and after procedure. Bronchoscope was then passed in the trachea, 1% lidocaine was instilled in the tracheobronchial tree bilaterally to provide topical anesthesia. Once complete, airways were surveyed. FINDINGS: The mainstem, lobar, segmental and subsegmental bronchi were all explored. There was significant thick mucus plugging throughout the left bronchial tree. This was purged and aspirated with patent airways at the end of procedure. There appeared to be some apparent extrinsic compression also possibly from her known bullous emphysema and/or pneumothorax. The right-sided structures, particularly the right lower lobe also had some mucus plugging that was purged and aspirated. Airways were patent at the end of procedure. The patient did require high flow oxygen with a nonrebreather at the end of procedure to provide adequate saturations, but otherwise, tolerated well. IMPRESSION: Mucus plugging with atelectasis, improved post bronchoscopy. PLAN: Await cultures of specimens, add additional airway clearance including IPV if tolerated. Continue chest tube to suction and Mucomyst aerosol treatments. By: [id number] Mika Calderón MD /nt
--- NOTE | ~2017-11-13 | HC ---
[facility] [address] [address] CONSULTATION Name: BRENTONKEVIN S Room #: 219-P [facility] IN .R.#: [id number] Admission: 11/13/17 Attend Phys: Aleisha Minor Discharge: Date of : 61 Report #: [id number] THIS REPORT FOR: //name// CC: Avel CASTILLO unknown REASON FOR CONSULTATION: I was asked to evaluate concerning pneumonia and drug rash. HISTORY OF PRESENT ILLNESS: The patient is a 52-year-old known from her previous hospitalization where she was diagnosed with pneumonia and left-sided pneumothorax and required chest tube placement. Also had epistaxis and required intervention by ENT for packing. Subsequently, she was discharged to [facility]. She had returned subsequent to this for manipulation of her chest tube. She returns now with two issues, noting chronic left-sided pneumothorax and nonfunctional left chest tube along with rash. No fever, chills or sweats. Has had minimal cough or sputum production. No pruritus. She has had nausea. No diarrhea. No dysuria or frequency. She is incontinent of urine. PAST MEDICAL HISTORY: COPD, obstructive sleep apnea, bullous emphysema, morbid obesity. FAMILY HISTORY: Noncontributory. SOCIAL HISTORY: Nonsmoker, no significant alcohol intake. ALLERGIES: Thus far none previously, but now suspecting ZOSYN. REVIEW OF SYSTEMS: Noted above. PHYSICAL EXAMINATION: GENERAL: Afebrile and hemodynamically stable. She has a left anterior chest tube in place. SKIN: She has diffuse macular rash with erythroderma to her back. HEENT: Eyes and mouth were unremarkable. There are no mucosal ulcers or swelling. NECK: Obese and supple. CHEST: Chest tube site was unremarkable. There was no significant drainage from the catheter. LUNGS: Decreased breath sounds bilaterally. HEART: Regular, without murmur. ABDOMEN: Obese, soft and nontender. No hepatosplenomegaly or mass. EXTREMITIES: Unremarkable. She was on high flow oxygen per nasal cannula. LABORATORY STUDIES: Chest x-ray shows left chest tube in the mid lung, which was kinked upon itself. No subcutaneous emphysema. Residual pneumothorax [facility] [address] [place] [address] CONSULTATION Name: KEVIN FARRIS Room #: 219-P [facility] IN .R.#: [id number] Admission: 11/13/17 Attend Phys: Aleisha Minor Discharge: Date of : 61 Report #: [id number] evident. Moderate left pleural effusion. Left lung atelectasis. Hemoglobin 9, WBC 10.3, platelet count 520,000, 2% eosinophils. Sodium 144, potassium 3.8, bicarbonate of 40, creatinine 1.5. Liver function test normal. IMPRESSION: A 52-year-old with nonfunctioning left chest tube for persistent pneumothorax. Her subcutaneous emphysema has improved. She continues to have a left lower lobe atelectasis, infiltrate. Her bronchoscopy from 10/31/2017 showed MRSA. She is now on Zosyn and I suspect having a drug reaction to such. RECOMMENDATIONS: We will discontinue Zosyn and continue with corticosteroids to help with the rash. She had MRSA growth from her most recent bronchoscopy of 10/31/2017. We will plan to continue with vancomycin and repeat sputum culture. <ELECTRONICALLY SIGNED> By: Tl Muñoz MD 11/15/17 1143 1154 1258 Tl Muñoz MD /nt
[~2017-11-13 10:07] MED LIST changes: +CARVEDILOL12.5 MG PO; +DEEP SEA NASAL44 M1 NASAL; +OXYCODONE HCL10 MG PO; +VANCO 500500 MG/100 IV; +ZOSYN 4.5 GRAM4.5 GM IV
[2017-11-13 13:41] VITALS: BP 107/76
[2017-11-13 15:23] VITALS: BP 115/74
[2017-11-13 18:43] LABS: ABSOLUTE NEUTROPHILS 7.7 thou/uL (1.4-8.2); BASOPHILS 0.4 % (0.0-2.0); HEMATOCRIT 28.4 % (37.0-47.0); LYMPHOCYTES 16.3 % (24.0-44.0); MCH 25.1 pg (26.0-34.0); MCHC 31.5 g/dL (28.0-37.0); MCV 79.7 fL (80.0-100.0); MONOCYTES 6.8 % (1.0-8.0); PLATELET COUNT 520 thou/uL (150-400); POLYS 74.5 % (36.0-66.0); RBC 3.56 mil/uL (4.20-5.00); RDW 19.1 % (10.5-14.5); WBC 10.3 thou/uL (4.0-11.0)
[2017-11-13 18:56] LABS: ALBUMIN 2.5 g/dL (3.4-5.0); CALCIUM 9.1 mg/dL (8.5-10.1); CREATININE 1.5 mg/dL (0.6-1.0); POTASSIUM 3.8 mmol/L (3.5-5.1); TOTAL BILIRUBIN 0.2 mg/dL (<0.1-1.0); TOTAL PROTEIN 6.9 g/dL (6.4-8.2)
[2017-11-13 19:37] VITALS: BP 125/66
[2017-11-14 00:27] VITALS: BP 122/71
[2017-11-14 03:45] VITALS: BP 129/75
[2017-11-14 07:23] VITALS: BP 145/89
[2017-11-14 09:24] LABS: PROTIME 10.7 Seconds (9.3-11.4)
[2017-11-14 11:14] VITALS: BP 125/73
[2017-11-14 15:39] VITALS: BP 118/69
[2017-11-14 22:09] VITALS: BP 121/65
[2017-11-15 04:44] VITALS: BP 125/71
[2017-11-15 07:52] LABS: HEMATOCRIT 28.3 % (37.0-47.0); MCH 24.7 pg (26.0-34.0); MCHC 31.7 g/dL (28.0-37.0); PLATELET COUNT 540 thou/uL (150-400); RBC 3.63 mil/uL (4.20-5.00); RDW 19.3 % (10.5-14.5); WBC 23.6 thou/uL (4.0-11.0)
[2017-11-15 08:03] VITALS: BP 105/68
[2017-11-15 08:07] LABS: CALCIUM 8.7 mg/dL (8.5-10.1); CREATININE 1.1 mg/dL (0.6-1.0); POTASSIUM 3.4 mmol/L (3.5-5.1)
[2017-11-15 10:20] LABS: HCO3 35.8 mmol/L (22.0-26.0); PCO2 55.4 mmHg (35.0-45.0); PO2 62.5 mmHg (80.0-100.0); pH 7.428 (7.360-7.450)
[2017-11-15 11:01] VITALS: BP 127/66
[2017-11-15 12:37] LABS: ABSOLUTE NEUTROPHILS 20.8 thou/uL (1.4-8.2); ANISOCYTOSIS 2+
[2017-11-15 12:38] LABS: HYPOCHROMASIA 2+; MICROCYTES 1+; POLYCHROMASIA SLIGHT
[2017-11-15 15:31] VITALS: BP 103/49
[2017-11-15 19:25] VITALS: BP 116/61
[2017-11-16 04:02] VITALS: BP 124/74
[2017-11-16 09:16] VITALS: BP 149/81
[2017-11-16 12:31] VITALS: BP 103/70
[2017-11-16 12:47] LABS: MCH 24.4 pg (26.0-34.0); MCHC 31.1 g/dL (28.0-37.0); MCV 78.5 fL (80.0-100.0); PLATELET COUNT 501 thou/uL (150-400); RBC 3.69 mil/uL (4.20-5.00); RDW 19.5 % (10.5-14.5); WBC 22.8 thou/uL (4.0-11.0)
[2017-11-16 13:21] LABS: ABSOLUTE NEUTROPHILS 19.4 thou/uL (1.4-8.2)
[2017-11-16 13:22] LABS: ANISOCYTOSIS 1+; HYPOCHROMASIA SLIGHT; MICROCYTES 1+; POLYCHROMASIA SLIGHT
[2017-11-16 17:39] VITALS: BP 148/80
[2017-11-16 19:09] VITALS: BP 109/64
[2017-11-16 23:26] VITALS: BP 123/74
[2017-11-17 04:48] VITALS: BP 132/56
[2017-11-17 04:58] VITALS: BP 111/55
[2017-11-17 08:23] VITALS: BP 140/72
[2017-11-17 15:55] VITALS: BP 109/67
[2017-11-17 19:55] VITALS: BP 129/92
[2017-11-18 04:30] VITALS: BP 109/71
[2017-11-18 09:15] VITALS: BP 92/53
[2017-11-18 11:43] VITALS: BP 100/57
[2017-11-18 16:02] VITALS: BP 117/58
[2017-11-18 19:58] VITALS: BP 96/54
[2017-11-19 04:28] LABS: HEMATOCRIT 26.8 % (37.0-47.0); HEMOGLOBIN 8.4 gm/dL (12.0-15.0); MCH 24.9 pg (26.0-34.0); MCHC 31.2 g/dL (28.0-37.0); MCV 79.6 fL (80.0-100.0); RBC 3.36 mil/uL (4.20-5.00); RDW 19.4 % (10.5-14.5); WBC 20.8 thou/uL (4.0-11.0)
[2017-11-19 04:33] LABS: CALCIUM 8.6 mg/dL (8.5-10.1); CREATININE 1.6 mg/dL (0.6-1.0); POTASSIUM 3.2 mmol/L (3.5-5.1)
[2017-11-19 05:16] VITALS: BP 123/56
[2017-11-19 08:10] VITALS: BP 140/62
[2017-11-19 13:04] VITALS: BP 103/60
[2017-11-19 15:41] VITALS: BP 93/56
[2017-11-19 19:50] VITALS: BP 104/60
[2017-11-20 03:27] VITALS: BP 105/62
[2017-11-20 08:07] VITALS: BP 107/62
[2017-11-20] MEDS ORDERED: DIPHENHIST25 M1 PO (08:54)
[2017-11-20] MEDS ORDERED: ENOXAPARIN40 MG/0.1 SUBQ (08:55)
[2017-11-20] MEDS ORDERED: VANCO1GM IV (08:55)
[2017-11-20] MEDS ORDERED: FERREX 150 PLU1 EAC1 PO (08:55)
[2017-11-20] MEDS ORDERED: ACETYLCYST200 MG/1 M INH (08:56)
[2017-11-20] MEDS ORDERED: NYSTATIN-TRIAMC15 GM TOP (08:56)
[2017-11-20 11:38] VITALS: BP 92/53
[2017-11-20 14:08] VITALS: BP 92/53
== END 2017-11-20 14:57 | DRG 166 ==
LOC: 3N 10:07 → 2N 10:38
PROVIDERS: Internal Medicine; Internal Medicine Geriatric Medicine; Internal Medicine Pulmonary Disease; Radiology Vascular & Interventional Radiology; Specialist
PROC: 0BDF8ZX Extraction of Right Lower Lung Lobe, Via Natural or Artificial Opening Endoscopic, Diagnostic (ICD-10-PCS; principal; 2017-11-17)
PROC: 0BD88ZX Extraction of Left Upper Lobe Bronchus, Via Natural or Artificial Opening Endoscopic, Diagnostic (ICD-10-PCS; principal; 2017-11-17)
PROC: 0B9G8ZX Drainage of Left Upper Lung Lobe, Via Natural or Artificial Opening Endoscopic, Diagnostic (ICD-10-PCS; principal; 2017-11-17)
PROC: 0BD78ZX Extraction of Left Main Bronchus, Via Natural or Artificial Opening Endoscopic, Diagnostic (ICD-10-PCS; principal; 2017-11-17)
PROC: 0W9B30Z Drainage of Left Pleural Cavity with Drainage Device, Percutaneous Approach (ICD-10-PCS; principal; 2017-11-17)
PROC: 0BDB8ZX Extraction of Left Lower Lobe Bronchus, Via Natural or Artificial Opening Endoscopic, Diagnostic (ICD-10-PCS; principal; 2017-11-17)
DX: J93.9 Pneumothorax, unspecified (principal); J96.21 Acute and chronic respiratory failure with hypoxia; E43 Unspecified severe protein-calorie malnutrition; J18.1 Lobar pneumonia, unspecified organism; E66.2 Morbid (severe) obesity with alveolar hypoventilation; T17.590A Other foreign object in bronchus causing asphyxiation, initial encounter; Z68.43 Body mass index [BMI] 50.0-59.9, adult; J98.11 Atelectasis; L53.9 Erythematous condition, unspecified; G47.33 Obstructive sleep apnea (adult) (pediatric); E66.01 Morbid (severe) obesity due to excess calories; J43.9 Emphysema, unspecified; D64.9 Anemia, unspecified; Z79.82 Long term (current) use of aspirin; Z79.899 Other long term (current) drug therapy; Z88.8 Allergy status to other drugs, medicaments and biological substances; Z90.710 Acquired absence of both cervix and uterus; X58.XXXA Exposure to other specified factors, initial encounter; Y93.89 Activity, other specified; Y92.89 Other specified places as the place of occurrence of the external cause; Y99.8 Other external cause status
CPT/HCPCS: 10797

== ENCOUNTER 2017-12-22 16:53 | Inpatient (IN) | payer OTHER ==
[~2017-12-22] VITALS: Ht 154.9 cm; Wt 128.5 kg
--- NOTE | ~2017-12-22 | 2DMMODE ---
[facility] [address] [place] [address] 2 D/M-MODE ECHOCARDIOGRAM Name: KEVIN FARRIS Room #: 351-P [facility] IN ..#: [id number] Admission: 12/22/17 Attend Phys: Sixto Peters MD Discharge: Date of : 61 Date of Service: 12/23/17 1151 Report #: [id number] THIS REPORT FOR: //name// APPROVED REPORT Study performed: 12/23/2017 10:50:32 EXAM: Comprehensive 2D, Doppler, and color-flow Echocardiogram Patient Location: Bedside Room #: [facility] Status: routine BSA: 2.11 HR: 99 bpm BP: 96/43 mmHg Rhythm: Tachycardia Other Information Study Quality: Adequate Technically limited study due to morbid obesity. Indications Fluid overload, elevated BNP. Hx: COPD, CHF, CAD, Afib, DM, HLP 2D Dimensions RVDd: 41.08 mm LVEF(%): 52.53 (>50%) IVSd: 11.65 (7-11mm) LVOT Diam: 20.88 (18-24mm) LVDd: 50.72 mm PWd: 12.42 (7-11mm) Ascending Ao: 29.49 (22-36mm) LVDs: 36.97 (25-40mm) Aortic Root: 35.07 mm Wahl's LVEF: 52.53 % Volumes Left Atrial Volume (Systole) Single Plane 4CH: 36.42 mL Single Plane 2CH: 48.69 mL LA ESV Index: 22.00 mL/m2 Aortic Valve AoV Peak Jeferson.: 1.38 m/s AO Peak Gr.: 7.57 mmHg LVOT Max P.03 mmHg LVOT Max V: 1.12 m/s CECILIA Vmax: 2.79 cm2 Mitral Valve E/A Ratio: 0.8 [facility] [place] [address] 2 D/M-MODE ECHOCARDIOGRAM Name: KEVIN FARRIS Room #: 351-P [facility] IN .#: [id number] Admission: 12/22/17 Attend Phys: Sixto Peters MD Discharge: Date of : 61 Date of Service: 12/23/17 1151 Report #: [id number] MV Decel. Time: 239.91 ms MV E Max Jeferson.: 0.91 m/s MV A Jeferson.: 1.11 m/s MV PHT: 69.57 ms IVRT: 58.82 ms Pulmonary Valve PV Peak Jeferson.: 0.94 m/s PV Peak Gr.: 3.55 mmHg Pulmonary Vein P Vein S: 0.83 m/s P Vein A: 0.34 m/s P Vein D: 0.62 m/s P Vein A Dur.: 103.8 msec P Vein S/D Ratio: 1.34 Tricuspid Valve TR Peak Jeferson.: 3.80 m/s RAP Estimate: 5.00 mmHg TR Peak Gr.: 57.83 mmHg PA Pressure: 63.00 mmHg Left Ventricle The left ventricle is normal size. There is normal LV segmental wall motion. Mild concentric left ventricular hypertrophy. Left ventricular systolic function is hyperdynamic. LVEF is 70%. Mild diastolic dysfunction is present (impaired relaxation pattern). Right Ventricle Right ventricle is at the upper limits of normal. The right ventricular systolic function is normal. Atria The left atrium size is normal. Right atrium is at the upper limits of normal. Aortic Valve The aortic valve is normal in structure. No aortic regurgitation is present. There is no aortic valvular stenosis. Mitral Valve The mitral valve is normal in structure. Trace mitral regurgitation. No evidence of mitral valve stenosis. Tricuspid Valve The tricuspid valve is normal in structure. Moderate tricuspid regurgitation. Estimated PAP is 60-65mmHg. [facility] [address] [place] [address] 2 D/M-MODE ECHOCARDIOGRAM Name: KEVIN FARRIS Room #: 351-P [facility] IN ..#: [id number] Admission: 12/22/17 Attend Phys: Sixto Peters MD Discharge: Date of : 61 Date of Service: 12/23/17 1151 Report #: [id number] Pulmonic Valve The pulmonary valve is normal in structure. There is no pulmonic valvular regurgitation. Great Vessels The aortic root is normal in size. The ascending aorta is normal in size. IVC is normal in size and collapses >50% with inspiration. Pericardium There is no pericardial effusion. <Conclusion> The left ventricle is normal size. LVEF is 70%. Right ventricle is at the upper limits of normal. The aortic valve is normal in structure. The mitral valve is normal in structure. Trace mitral regurgitation. The tricuspid valve is normal in structure. Moderate tricuspid regurgitation. Estimated PAP is 60-65mmHg. The pulmonary valve is normal in structure. There is no pericardial effusion. <ELECTRONICALLY SIGNED> By: Brice Bonds MD 12/23/17 1151 1151 1151 Brice Bonds MD /INF
--- NOTE | ~2017-12-22 | H ---
[facility] [place] [address] HISTORY AND PHYSICAL Name: KEVIN FARRIS Room #: 351-P [facility] IN M.R.#: [id number] Admission: 12/22/17 Attend Phys: Sixto Peters MD Discharge: Date of : 61 Report #: [id number] THIS REPORT FOR: //name// CC: Sixto CASTILLO unknown DATE OF SERVICE: 12/22/2017 ATTENDING PHYSICIAN: Dr. Hargrove PRIMARY CARE PHYSICIAN: Boris Cordon M.D. CHIEF COMPLAINT: Acute renal failure. HISTORY OF PRESENT ILLNESS: The patient is a 52-year-old female who was recently hospitalized here in November at [facility] for respiratory failure. She did end up having MRSA in sputum and was treated for pneumonia. She was on multiple IV antibiotics, but also IV vancomycin. She was followed by Infectious Disease during that hospitalization as well as Pulmonary. She underwent a bronchoscopy for mucus plugging. She ended up being discharged to an LTAC on 6 liters of oxygen and was receiving vancomycin. According to her records, she was receiving vancomycin up until 12/01. It does not look like vancomycin levels were followed at the facility. She ended up being sent to [facility] for possible infection of her right-sided PICC line. Prior to transferring her to [facility], the LTAC did give her a dose of Bactrim. In the ER when she was evaluated, she was noted to have a significantly elevated creatinine. Her creatinine was 8.7. On our records, her creatinine was 1.6 on 11/19 prior to discharge and back in October her creatinine was 0.8. She is somewhat out a bit. She answers questions intermittently, but sometimes becomes very spacey. She is not able to tell me if she has been making much urine, but it appears that she has been incontinent. She complains of a dry mouth and a sore bottom. She denies any recent vomiting or diarrhea. She had been on Lasix according to her home medication list. She was transferred here for further Nephrology evaluation. PAST MEDICAL HISTORY: Severe COPD with bullous emphysema, congestive heart failure with last known EF of 50-55%, diabetes type 2, atrial fibrillation, anxiety, depression, coronary artery disease, GERD, osteoarthritis, anemia, right pulmonary nodule, obstructive sleep apnea, recent MRSA pneumonia, obesity hypoventilation and recent left-sided pneumothorax. PAST SURGICAL HISTORY: Ventral hernia repair, hysterectomy, right knee repair and right foot repair. ALLERGIES: ZOSYN CAUSED A DRUG RASH. [facility] [address] [place] [address] HISTORY AND PHYSICAL Name: KEVIN FARRIS Room #: 351-P [facility] IN [facility]#: [id number] Admission: 12/22/17 Attend Phys: Sixto Peters MD Discharge: Date of : 61 Report #: [id number] HOME MEDICATIONS: DuoNeb q. 4 hours while awake, iron 150 mg daily, Lovenox 40 mg at bedtime, carvedilol 12.5 mg b.i.d., aspirin ____ daily, oxycodone 10 mg q. 3h. p.r.n., Tylenol p.r.n., Celexa 10 mg daily, potassium 20 mEq daily, Lasix 40 mg daily, Advair 250/50 one puff b.i.d., Mucomyst 800 mg t.i.d., Protonix 40 mg daily, prednisone 10 mg daily and nystatin powder. SOCIAL HISTORY: The patient is an ex-smoker having quit 10 years ago. She denies any alcohol or drug use. She has currently been at an LTAC. She says she is able to ambulate. FAMILY HISTORY: Significant for chronic kidney disease ____. REVIEW OF SYSTEMS: Prior records were reviewed and 12-point review of systems was attempted with the patient, but not very successful as the patient is slightly confused. PHYSICAL EXAMINATION: GENERAL: The patient is a confused, obese female, in no acute distress. VITAL SIGNS: Temperature 36.8, heart rate 92, respirations 20, blood pressure 140/85, oxygen 92% on 9 liters O2 per nasal cannula. HEENT: PERRLA. Sclerae is nonicteric. Oral mucosa is very dry. There is no saliva at all. Her lips are cracked. Her teeth are coated and crusty. NECK: Supple, no JVD noted. CARDIAC: Heart tones are irregular, but no murmurs, rubs or gallops. RESPIRATORY: Breath sounds are clear bilateral upper lobes. She is very diminished in both bases. Breathing is nonlabored. ABDOMEN: Obese, soft and nontender with positive bowel sounds. VASCULAR: 4+ bilateral lower extremity edema. Pedal pulses are 1+. NEUROLOGIC: The patient is alert, but confused. She is unable to tell me the current month or year. She was aware she was in the hospital. She could not tell me which one. She will intermittently follow commands. She does seem to have slow responses and space out at times. She is having some upper extremity involuntary twitching of both arms and she is able to slightly lift her legs up off the bed, but her muscle strength is 4/5 in both lower extremities. Muscle strength is 5/5 bilateral upper extremities. SKIN: She does have a yeast rash all through her entire groin area and abdominal folds. There are multiple areas where she has been scratching that have left some scabbed skin in the right upper extremity and buttock areas. There is pink to purplish skin on her buttocks. This is worse on the left side. LABORATORY AND DIAGNOSTICS: Lab work done at [facility] showed a WBC of 13.0, hemoglobin 9.6 and platelets 363. Sodium 134, potassium 4.9, BUN 62, creatinine 8.7 and glucose 94. LFTs are within normal limits. Albumin is 1.9. BNP is 9269. Lactate is 1.5. Troponin is negative. CK is 75. [facility] [place] [address] HISTORY AND PHYSICAL Name: KEVIN FARRIS Room #: 351- ADM IN .R.#: [id number] Admission: 12/22/17 Attend Phys: Sixto Peters MD Discharge: Date of : 61 Report #: [id number] ASSESSMENT AND PLAN: 1. Acute renal failure. Last known creatinine was 1.6 on 11/19. This is possibly due to vancomycin toxicity, which was discontinued on 12/01. Nephrology is consulted. We will have a Pleitez catheter placed, check renal ultrasound and check urine studies. She does have a significant amount of edema and low albumin. She may have developed nephrotic syndrome. We are awaiting a UA. 2. Chronic hypoxic respiratory failure. She does have severe COPD and obesity hypoventilation syndrome. We will again consult Pulmonology for further recommendations. She is currently on 9 liters of oxygen, which we will continue. ABG was attempted, but unsuccessful. We will continue breathing treatments. 3. Severe protein calorie malnutrition. The patient does have low albumin and third spacing ____ of lower extremities. We are awaiting UA to assess for proteinuria. 4. Chronic atrial fibrillation. She is currently rate controlled. We do need to clarify her home medications. It does not look like she is on any anticoagulation at this time. 5. Diabetes type 2. Blood sugar is stable. Add sliding scale insulin and follow Accu-Cheks. 6. History of coronary artery disease. She denies any chest pain. Troponin is negative. 7. Anemia. No signs of bleeding. Her hemoglobin is stable from previous labs in October and November. 8. Sacral wounds. Wound care is consulted. She does not have any areas that look actively infected, so we will hold off on antibiotics. 9. Deep venous thrombosis prophylaxis, place sequential compression devices. We will continue to follow the patient closely throughout the hospitalization and make changes based on clinical status. <ELECTRONICALLY SIGNED> By: CONCETTA Reaves 12/23/17 0943 [id number] [id number] CONCETTA Reaves /purnima
--- NOTE | ~2017-12-22 | HC ---
[facility] [place] [address] [place] [address] CONSULTATION Name: KEVIN FARRIS Room #: 351-P [facility] IN ..#: [id number] Admission: 12/22/17 Attend Phys: Sixto Peters MD Discharge: Date of : 61 Report #: [id number] THIS REPORT FOR: //name// CC: Sixto CASTILLO unknown DATE OF SERVICE: 12/23/2017 REASON FOR CONSULTATION: Acute renal failure. HISTORY OF PRESENT ILLNESS: This 52-year-old patient with morbid obesity, who has been bedbound for several years and a chronic assisted resident, had been hospitalized here for pneumonia, left-sided pneumothorax and chest tube placements and also MRSA infection in October or November of this year. Renal function has been normal. Over the last 7 days, she has had nausea, vomiting and diarrhea. She has been on furosemide and her creatinine rhianna from 1 up to a level of greater than 9 and she is admitted here for further evaluation and treatment. PAST MEDICAL HISTORY: She has obesity hypoventilation bullous emphysema. She is a former smoker and obstructive sleep apnea as well. She has had chronic debility, bedbound as mentioned along with morbid obesity. FAMILY HISTORY: Negative for renal disease, heart disease, diabetes. SOCIAL HISTORY: She is a former smoker. ALLERGIES: Reportedly to Zosyn with a drug rash earlier this year. REVIEW OF SYSTEMS: GENERAL: She has not been feeling well. EYES: Her vision is fine. ENT: Hearing okay, swallows okay. No mouth ulcers. ENDOCRINE: There is a chart report of her having diabetes, but she denies that. RESPIRATORY: Easily short winded, but no pleuritic pain. The chest tubes are out. CARDIAC: No chest pain, angina or history of myocardial infarction or heart failure. No palpitations. GASTROINTESTINAL: She has had the nausea, vomiting, diarrhea, but no bloody stool, no abdominal pain. GENITOURINARY: Reasonably good urinary stream. No difficulties there. NEUROLOGIC: Just generalized weakness. NEUROMUSCULAR: Denies arthritis. CURRENT MEDICATIONS: At facility include aspirin 81 mg daily, citalopram 10 mg daily, iron, furosemide 40 mg daily, Protonix 40 mg daily, potassium [address] [place] [address] [address] CONSULTATION Name: KEVIN FARRIS Room #: 351-P [facility] IN [facility].#: [id number] Admission: 12/22/17 Attend Phys: Sixto Peters MD Discharge: Date of : 61 Report #: [id number], carvedilol 12.5 mg b.i.d., prednisone 20 mg daily, Lovenox and DuoNeb inhaler, p.r.n. oxycodone. PHYSICAL EXAMINATION: GENERAL: This is a lucid woman, giving a good history. SKIN: Unremarkable. SKELETAL: Shows morbid obesity. HEENT: Extraocular movements are full. No scleral icterus. Hearing and vision intact. Mucous membranes are dry. The neck veins are flat. CHEST: Shows diminished breath sounds at the bases. HEART: Regular but distant. ABDOMEN: Slightly tender, soft, good bowel sounds. EXTREMITIES: Show absolutely no peripheral edema. Pleitez catheter is in place. LABORATORY DATA: Shows urinalysis with a concentrated urine 1.030. A urine sodium of only 10. A urine creatinine of 424, potassium of 5, creatinine 9.7, BUN 66. ASSESSMENT AND PLAN: 1. Acute kidney injury. She has acute kidney injury, appears to be for the most part volume depletion, hopefully to be rescued with aggressive IV fluid therapy. I will increase her IV fluids and hope to see the creatinine start to fall as well could of course, we will keep her off of the furosemide at the current time. There was a question as to whether she may have had an infected PICC line on the right, although I do not see anything over there that is particularly worrisome for any kind of serious or systemic infection. She had been treated with vancomycin for the methicillin resistant Staphylococcus aureus, but she is off of that now. 2. Obesity hypoventilation with bullous emphysema. 3. Obstructive sleep apnea. 4. Morbid obesity. <ELECTRONICALLY SIGNED> By: Niall Stafford MD 12/25/17 1101 1004 14 Niall Stafford MD /nt
[~2017-12-22 16:53] MED LIST changes: +ACETYLCYST200 MG/1 M INH; +DIPHENHIST25 M1 PO; +FERREX 150 PLU1 EAC1 PO; +NYSTATIN-TRIAMC15 GM TOP; +VANCO1GM IV
[2017-12-22 18:26] VITALS: BP 140/85
[2017-12-22 20:25] VITALS: BP 138/78
[2017-12-22 23:57] VITALS: BP 112/89
[2017-12-23 00:17] LABS: HEMATOCRIT 27.9 % (37.0-47.0); HEMOGLOBIN 8.8 gm/dL (12.0-15.0); MCH 24.4 pg (26.0-34.0); MCHC 31.6 g/dL (28.0-37.0); MCV 77.3 fL (80.0-100.0); RBC 3.61 mil/uL (4.20-5.00); RDW 19.4 % (10.5-14.5)
[2017-12-23 00:24] LABS: ALBUMIN 1.8 g/dL (3.4-5.0); CALCIUM 7.8 mg/dL (8.5-10.1); CREATININE 9.7 mg/dL (0.6-1.0); TOTAL BILIRUBIN 0.3 mg/dL (<0.1-1.0); TOTAL PROTEIN 5.7 g/dL (6.4-8.2)
[2017-12-23 00:48] LABS: URINE BILIRUBIN 1+ (Negative); URINE BLOOD NEGATIVE (Negative); URINE CLARITY SL CLOUDY; URINE COLOR BROWN; URINE GLUCOSE-RANDOM* NEGATIVE (Negative); URINE KETONES NEGATIVE (Negative); URINE LEUKOCYTES NEGATIVE (Negative); URINE NITRITE NEGATIVE (Negative); URINE PROTEIN (DIPSTICK) NEGATIVE (Negative); URINE SPECIFIC GRAVITY >= 1.030 (1.005-1.035); URINE UROBILINOGEN 0.2 E.U./dl (0.2-1.0)
[2017-12-23 00:49] LABS: ICTOTEST (BILI CONFIRMATORY) Positive (Negative)
[2017-12-23 04:15] VITALS: BP 126/87
[2017-12-23 07:45] VITALS: BP 96/43
[2017-12-23 10:41] LABS: BE(vivo) -6.8 mmol/L (-2 to +3); HCO3 20.4 mmol/L (22.0-26.0); PCO2 48.3 mmHg (35.0-45.0); PO2 64.7 mmHg (80.0-100.0)
[2017-12-23 10:42] LABS: pH 7.243 (7.360-7.450)
[2017-12-23 13:20] VITALS: BP 75/41
[2017-12-23 16:19] VITALS: BP 145/116
[2017-12-23 17:05] VITALS: BP 147/92
[2017-12-23 19:40] VITALS: BP 106/74
[2017-12-24 04:00] VITALS: BP 143/81
[2017-12-24 05:56] LABS: BASOPHILS 0.2 % (0.0-2.0); EOSINOPHILS 0.1 % (0.0-3.0); HEMATOCRIT 25.5 % (37.0-47.0); LYMPHOCYTES 8.2 % (24.0-44.0); MCH 24.4 pg (26.0-34.0); MCHC 31.4 g/dL (28.0-37.0); MCV 77.9 fL (80.0-100.0); MONOCYTES 0.6 % (1.0-8.0); PLATELET COUNT 346 thou/uL (150-400); POLYS 90.9 % (36.0-66.0); RBC 3.28 mil/uL (4.20-5.00); WBC 12.1 thou/uL (4.0-11.0)
[2017-12-24 06:15] LABS: ALBUMIN 1.6 g/dL (3.4-5.0); CALCIUM 7.3 mg/dL (8.5-10.1); PHOSPHORUS 8.6 mg/dL (2.5-4.9); POTASSIUM 5.3 mmol/L (3.5-5.1)
[2017-12-24 06:24] LABS: CREATININE 7.3 mg/dL (0.6-1.0)
[2017-12-24 07:15] VITALS: BP 100/41
[2017-12-24 11:45] VITALS: BP 98/34
[2017-12-24 15:35] VITALS: BP 82/56
[2017-12-24 19:40] VITALS: BP 101/65
[2017-12-25 04:00] VITALS: BP 130/65
[2017-12-25 06:45] LABS: ALBUMIN 1.7 g/dL (3.4-5.0); CALCIUM 6.8 mg/dL (8.5-10.1); PHOSPHORUS 7.2 mg/dL (2.5-4.9); POTASSIUM 4.7 mmol/L (3.5-5.1)
[2017-12-25 06:47] LABS: CREATININE 4.8 mg/dL (0.6-1.0)
[2017-12-25 07:30] VITALS: BP 154/104
[2017-12-25 11:50] VITALS: BP 140/97
[2017-12-25 16:00] VITALS: BP 102/48
[2017-12-25 19:24] VITALS: BP 92/74
[2017-12-26 04:00] VITALS: BP 97/49
[2017-12-26 05:28] LABS: ALBUMIN 2.1 g/dL (3.4-5.0); CALCIUM 7.6 mg/dL (8.5-10.1); CREATININE 4.1 mg/dL (0.6-1.0); PHOSPHORUS 7.3 mg/dL (2.5-4.9); POTASSIUM 5.1 mmol/L (3.5-5.1)
[2017-12-26 05:54] LABS: HEMATOCRIT 25.9 % (37.0-47.0); HEMOGLOBIN 8.1 gm/dL (12.0-15.0); MCH 23.9 pg (26.0-34.0); MCHC 31.2 g/dL (28.0-37.0); MCV 76.8 fL (80.0-100.0); RBC 3.37 mil/uL (4.20-5.00); RDW 19.5 % (10.5-14.5)
[2017-12-26 05:55] LABS: PLATELET COUNT 423 thou/uL (150-400)
[2017-12-26 07:20] VITALS: BP 145/72
[2017-12-26 07:29] LABS: ABSOLUTE NEUTROPHILS 7.4 thou/uL (1.4-8.2)
[2017-12-26 07:30] LABS: ANISOCYTOSIS 2+; HYPOCHROMASIA 1+; MICROCYTES 1+; PLATELET ESTIMATE INCREASED
[2017-12-26 07:33] LABS: OVALOCYTES FEW
[2017-12-26 11:20] VITALS: BP 89/63
[2017-12-26 12:35] VITALS: BP 106/48
[2017-12-26 15:15] VITALS: BP 100/70
[2017-12-26 19:26] VITALS: BP 126/43
[2017-12-27 04:38] VITALS: BP 128/66
[2017-12-27 06:41] LABS: ALBUMIN 2.2 g/dL (3.4-5.0); CALCIUM 7.9 mg/dL (8.5-10.1); PHOSPHORUS 6.4 mg/dL (2.5-4.9); POTASSIUM 4.7 mmol/L (3.5-5.1)
[2017-12-27 06:42] LABS: CREATININE 2.9 mg/dL (0.6-1.0)
[2017-12-27 12:00] VITALS: BP 152/67
[2017-12-27 16:00] VITALS: BP 107/79
[2017-12-27 20:21] VITALS: BP 117/69
[2017-12-28 04:00] VITALS: BP 124/81
[2017-12-28 06:02] LABS: HEMOGLOBIN 7.4 gm/dL (12.0-15.0); MCH 24.6 pg (26.0-34.0); MCHC 32.2 g/dL (28.0-37.0); MCV 76.3 fL (80.0-100.0); RBC 3.01 mil/uL (4.20-5.00); RDW 19.9 % (10.5-14.5); WBC 7.9 thou/uL (4.0-11.0)
[2017-12-28 06:14] LABS: ALBUMIN 2.1 g/dL (3.4-5.0); CALCIUM 8.6 mg/dL (8.5-10.1); CREATININE 2.1 mg/dL (0.6-1.0); PHOSPHORUS 5.3 mg/dL (2.5-4.9); POTASSIUM 4.3 mmol/L (3.5-5.1)
[2017-12-28 07:40] VITALS: BP 124/81
[2017-12-28 12:25] VITALS: BP 130/73
[2017-12-28 16:40] VITALS: BP 129/69
[2017-12-28 19:42] VITALS: BP 122/58
[2017-12-29 05:08] VITALS: BP 119/64
[2017-12-29 05:41] LABS: ALBUMIN 2.2 g/dL (3.4-5.0); CALCIUM 8.7 mg/dL (8.5-10.1); CREATININE 1.7 mg/dL (0.6-1.0); POTASSIUM 4.5 mmol/L (3.5-5.1)
[2017-12-29 07:30] VITALS: BP 125/74
[2017-12-29 08:25] LABS: HEMATOCRIT 24.3 % (37.0-47.0); HEMOGLOBIN 7.8 gm/dL (12.0-15.0); MCH 24.6 pg (26.0-34.0); MCHC 31.9 g/dL (28.0-37.0); MCV 77.2 fL (80.0-100.0); PLATELET COUNT 388 thou/uL (150-400); RBC 3.15 mil/uL (4.20-5.00); RDW 19.9 % (10.5-14.5); WBC 9.5 thou/uL (4.0-11.0)
[2017-12-29 09:05] LABS: ABSOLUTE NEUTROPHILS 8.5 thou/uL (1.4-8.2); ATYPICAL LYMPHS 1 %; METAMYELOCYTES 1 %
[2017-12-29 09:07] LABS: ANISOCYTOSIS 1+; HYPOCHROMASIA 1+; POIKILOCYTOSIS SLIGHT
[2017-12-29 12:10] VITALS: BP 108/66
[2017-12-29 16:03] VITALS: BP 105/56
[2017-12-29 18:53] VITALS: BP 125/76
[2017-12-30 03:21] VITALS: BP 129/59
[2017-12-30 06:36] LABS: HEMOGLOBIN 7.9 gm/dL (12.0-15.0); MCH 24.4 pg (26.0-34.0); MCHC 31.5 g/dL (28.0-37.0); MCV 77.5 fL (80.0-100.0); PLATELET COUNT 378 thou/uL (150-400); RBC 3.23 mil/uL (4.20-5.00); RDW 19.8 % (10.5-14.5)
[2017-12-30 06:43] LABS: CALCIUM 8.5 mg/dL (8.5-10.1); CREATININE 1.3 mg/dL (0.6-1.0); POTASSIUM 3.8 mmol/L (3.5-5.1)
[2017-12-30 08:08] VITALS: BP 149/77
[2017-12-30] MEDS ORDERED: PREDNISONE 10 M10 MG PO ×2 (09:13→14:55)
[2017-12-30 09:47] LABS: ABSOLUTE NEUTROPHILS 9.8 thou/uL (1.4-8.2); ANISOCYTOSIS 1+; HYPOCHROMASIA SLIGHT; MYELOCYTES 1 %; POIKILOCYTOSIS SLIGHT; POLYCHROMASIA SLIGHT
[2017-12-30 12:37] VITALS: BP 147/81
[2017-12-30] MEDS ORDERED: IRON325 PO (14:58)
[2017-12-30 17:46] VITALS: BP 139/85
== END 2017-12-30 18:54 | DRG 682 ==
LOC: 3W 16:53
PROVIDERS: Family Medicine; Hospitalist; Internal Medicine Nephrology; Nurse Practitioner Acute Care
PROC: 02HV33Z Insertion of Infusion Device into Superior Vena Cava, Percutaneous Approach (ICD-10-PCS; principal; 2017-12-22)
DX: N17.0 Acute kidney failure with tubular necrosis (principal); E43 Unspecified severe protein-calorie malnutrition; J96.22 Acute and chronic respiratory failure with hypercapnia; J96.21 Acute and chronic respiratory failure with hypoxia; T80.218A Other infection due to central venous catheter, initial encounter; E66.2 Morbid (severe) obesity with alveolar hypoventilation; Z68.43 Body mass index [BMI] 50.0-59.9, adult; L03.114 Cellulitis of left upper limb; E87.4 Mixed disorder of acid-base balance; J43.9 Emphysema, unspecified; I50.9 Heart failure, unspecified; F41.9 Anxiety disorder, unspecified; F32.9 Major depressive disorder, single episode, unspecified; I48.2 Chronic atrial fibrillation; I25.10 Atherosclerotic heart disease of native coronary artery without angina pectoris; K21.9 Gastro-esophageal reflux disease without esophagitis; M19.90 Unspecified osteoarthritis, unspecified site; D64.9 Anemia, unspecified; E11.42 Type 2 diabetes mellitus with diabetic polyneuropathy; Y83.8 Other surgical procedures as the cause of abnormal reaction of the patient, or of later complication, without mention of misadventure at the time of the procedure; Z99.81 Dependence on supplemental oxygen; Y92.89 Other specified places as the place of occurrence of the external cause; Z86.14 Personal history of Methicillin resistant Staphylococcus aureus infection; Z90.710 Acquired absence of both cervix and uterus; Z74.01 Bed confinement status; Z87.891 Personal history of nicotine dependence; Z88.8 Allergy status to other drugs, medicaments and biological substances; Z88.1 Allergy status to other antibiotic agents; Z82.49 Family history of ischemic heart disease and other diseases of the circulatory system
CPT/HCPCS: 10879